=== PATIENT | male | born 1970 | race Caucasian/White ===

== ENCOUNTER 2018-11-23 22:17 | Inpatient (IN) | payer BC ==
[~2018-11-23] VITALS: Ht 167.6 cm; Wt 76.5 kg
[2018-11-23] MEDS ORDERED: SOD CHLORIDE 0.9% 500 ML IV STA (22:34)
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
[2018-11-23] MEDS ORDERED: LABETALOL HCL 20MG INJ IV ONE ×2 (23:00→23:30)
[2018-11-23] MEDS ORDERED: niCARdipine-NS 0.1MG/ML DRIP 200 ML IV STA (23:17)
[2018-11-23] MEDS ORDERED: SOD CHLORIDE 0.9% 100 ML ONE ×2 (23:27→23:36)
[2018-11-23] MEDS ORDERED: IODIXANOL LOCM 100 ML BTL ONE (23:27)
[2018-11-23] MEDS ORDERED: IOHEXOL 100 ML ONE (23:36)
[2018-11-24] VITALS (73 sets, daily range): BP systolic 106–164; BP diastolic 68–108; PULSE 67–105; RESP 12–25; Ht 167.6 cm; Wt 76.5 kg
[2018-11-24] MEDS ORDERED: AMLODIPINE 10 MG TAB PO ONE (01:00)
[2018-11-24] MEDS ORDERED: ONDANSETRON 4 MG INJ IV PRN (01:00)
[2018-11-24] MEDS ORDERED: ACETAMINOPHEN 650MG/20.3ML CUP PO PRN (01:00)
[2018-11-24] MEDS ORDERED: niCARdipine 25 MG in SOD CHLORIDE 0.9% 240 ML IV SCH ×4 (01:00)
[2018-11-24] MEDS: niCARdipine 25 MG in SOD CHLORIDE 0.9% 240 ML IV SCH ×5 (05:06→22:37)
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
[2018-11-24] MEDS ORDERED: GLUCOSE GEL 15 GRAM TUBE PO PRN ×2 (09:30)
[2018-11-24] MEDS ORDERED: GLUCOSE GEL 15 GRAM TUBE BUCCAL PRN (09:30)
[2018-11-24] MEDS ORDERED: GLUCAGON 1 MG INJ IM PRN (09:30)
[2018-11-24] MEDS ORDERED: DEXTROSE 50% 50 ML SYRINGE IV PRN ×2 (09:30)
[2018-11-24] MEDS: FAMOTIDINE 20 MG TAB PO SCH ×2 (09:36→22:21)
[2018-11-24] MEDS: AMLODIPINE 10 MG TAB PO SCH (09:36)
[2018-11-24] MEDS: METOPROLOL 50 MG TAB PO SCH ×2 (09:37→22:21)
[2018-11-24] MEDS: FENOFIBRATE 48 MG TAB PO SCH (11:27)
[2018-11-24] MEDS: INSULIN ASPART [NOVOLOG] 3 ML PEN SC SCH ×3 (13:19→22:32)
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
[2018-11-24] MEDS: ZOLPIDEM 5 MG TAB PO PRN (22:22)
[2018-11-25] VITALS (46 sets, daily range): BP systolic 91–157; BP diastolic 56–113; PULSE 67–99; RESP 8–21
[2018-11-25] MEDS: INSULIN ASPART [NOVOLOG] 3 ML PEN SC SCH ×6 (03:22→21:42)
[2018-11-25] MEDS: ACCU-CHEK XX SCH (03:22)
[2018-11-25] MEDS: niCARdipine 25 MG in SOD CHLORIDE 0.9% 240 ML IV SCH (04:41)
[2018-11-25] MEDS ORDERED: LORAZEPAM 2 MG INJ IV PRN (08:00)
[2018-11-25] MEDS: FENOFIBRATE 48 MG TAB PO SCH (08:25)
[2018-11-25] MEDS: AMLODIPINE 10 MG TAB PO SCH (08:26)
[2018-11-25] MEDS: FAMOTIDINE 20 MG TAB PO SCH ×2 (08:27→21:33)
[2018-11-25] MEDS: METOPROLOL 50 MG TAB PO SCH ×2 (08:27→21:34)
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
--- NOTE | 2018-11-25 18:24 | CONS ---
Assessment/Plan Assessment/Plan Assessment/Plan (Daily) S/p right thalamic ICH. Neurologically stable. Bleed unlikely to progress at this point. No acute neurosurgical issues. f/u with PMD re: facial spasm for meds/Botox initial treatment, can refer for surgical treatment if these treatments are ineffective. Consultation Date/Type/Reason Admit Date/Time Nov 24, 2018 at 00:45 Initial Consult Date Type of Consult Neurosurgery Reason for Consultation ICH Requesting Provider: MINGO ESTRADA MD Date/Time of Note DATE: 11/25/18 TIME: 18:21 24 HR Interval Summary Free Text/Dictation Patient doing well. Dizziness has improved. Denies headache, nausea or vomiting. Exam/Review of Systems Exam Vitals Vital Signs Date Temp Pulse Resp B/P (MAP) Pulse Ox O2 O2 Flow FiO2 Time Delivery Rate 11/25/18 93 17:06 11/25/18 15 148/97 98 Room Air 15:00 (114) 11/25/18 98.4 13:00 Intake and Output 11/24/18 11/24/18 11/25/18 1515:00 23:00 07:00 IntakeIntake Total 685 ml 599.17 ml 255 ml OutputOutput Total 200 ml 600 ml 0 ml BalanceBalance 485 ml -0.83 ml 255 ml Constitutional: alert, oriented Psych: no complaints Head: normocephalic Neurological: CLIENT SERVICES MANAGER II-XII intact, nl mental status, nl speech, nl strength (left facial spasm, chronic), other Results Result Diagram: 11/25/18 0445 11/25/18 0445 Results 24hrs Laboratory Tests Test 11/24/18 22:31 11/25/18 03:21 11/25/18 04:45 11/25/18 06:15 Bedside Glucose 261 H 172 172 White Blood Count 12.2 #H Red Blood Count 5.05 Hemoglobin 15.6 Hematocrit 44.3 Mean Corpuscular Volume 87.7 Mean Corpuscular 30.9 Hemoglobin Mean Corpuscular 35.2 Hemoglobin Concent Red Cell Distribution 11.3 L Width Platelet Count 268 Mean Platelet Volume 10.5 H Immature Granulocytes % 0.300 Neutrophils % 57.9 Lymphocytes % 32.8 Monocytes % 7.1 Eosinophils % 1.4 Basophils % 0.5 Nucleated Red Blood 0.0 Cells % Immature Granulocytes # 0.040 H Neutrophils # 7.0 Lymphocytes # 4.0 H Monocytes # 0.9 Eosinophils # 0.2 Basophils # 0.1 Nucleated Red Blood 0.0 Cells # Sodium Level 140 Potassium Level 4.0 Chloride Level 106 Carbon Dioxide Level 26 Anion Gap 8 Blood Urea Nitrogen 20 Creatinine 1.04 Est Glomerular Filtrat > 60 Rate mL/min Glucose Level 151 Calcium Level 9.0 Phosphorus Level 4.3 Magnesium Level 2.2 Test 11/25/18 08:07 11/25/18 09:39 11/25/18 12:43 11/25/18 17:28 Bedside Glucose 174 350 H 194 217 Imaging Imaging MRI brain- stable ICH. No other concerning findings. Medications Medication Current Medications Ondansetron HCl (Zofran Inj) 4 mg Q6H PRN IV NAUSEA AND/OR VOMITING; Start 11/24/18 at 01:00 Acetaminophen (Tylenol Liquid) 650 mg Q6H PRN PO PAIN LEVEL 1-3 OR FEVER; Start 11/24/18 at 01:00 Famotidine (Pepcid) 20 mg Q12 PO Last administered on 11/25/18at 08:27; Admin Dose 20 MG; Start 11/24/18 at 09:00 Amlodipine Besylate (Norvasc) 10 mg DAILY PO Last administered on 11/25/18 08:26; Admin Dose 10 MG; Start 11/24/18 at 09:00 Metoprolol Tartrate (Lopressor) 50 mg BID PO Last administered on 11/25/18 08:27; Admin Dose 50 MG; Start 11/24/18 at 09:00 Fenofibrate (Tricor) 48 mg DAILY PO Last administered on 11/25/18 08:25; Admin Dose 48 MG; Start 11/24/18 at 11:00 Diagnostic Test (Pha) (Accu-Chek) 1 ea 02 XX Last administered on 11/25/18at 03:22; Admin Dose 1 EA; Start 11/25/18 at 02:00 Miscellaneous Information 1 ea NOTE XX ; Start 11/24/18 at 09:30 Glucose (Glutose) 15 gm Q15M PRN PO DECREASED GLUCOSE; Start 11/24/18 at 09:30 Glucose (Glutose) 22.5 gm Q15M PRN PO DECREASED GLUCOSE; Start 11/24/18 at 09:30 Dextrose (D50w Syringe) 25 ml Q15M PRN IV DECREASED GLUCOSE; Start 11/24/18 at 09:30 Dextrose (D50w Syringe) 50 ml Q15M PRN IV DECREASED GLUCOSE; Start 11/24/18 at 09:30 Glucagon (Glucagen) 1 mg Q15M PRN IM DECREASED GLUCOSE; Start 11/24/18 at 09:30 Glucose (Glutose) 15 gm Q15M PRN BUCCAL DECREASED GLUCOSE; Start 11/24/18 at 09:30 Lorazepam (Ativan) 1 mg ONCE PRN IV ANXIETY Last administered on 11/25/18at 13:01; Admin Dose 1 MG; Start 11/25/18 at 08:00; Stop 11/25/18 at 19:00 Zolpidem Tartrate (Ambien) 2.5 mg HS PRN PO INSOMNIA Last administered on 11/24/18at 22:22; Admin Dose 2.5 MG; Start 11/24/18 at 17:30 Insulin Aspart (Novolog Insulin Pen) NOVOLOG *MILD* ALGORI... IACHS SC Last administered on 11/25/18at 12:43; Admin Dose 2 UNIT; Start 11/25/18 at 11:00 FARSHAD CANTU MD Nov 25, 2018 18:24
[2018-11-25] MEDS: ZOLPIDEM 5 MG TAB PO PRN (23:20)
[2018-11-26] VITALS (8 sets, daily range): BP systolic 133–146; BP diastolic 94–99; PULSE 73–90; RESP 18–20
[2018-11-26] MEDS: ACCU-CHEK XX SCH (02:41)
[2018-11-26] MEDS: INSULIN ASPART [NOVOLOG] 3 ML PEN SC SCH ×2 (07:49→11:54)
[2018-11-26] MEDS: METOPROLOL 50 MG TAB PO SCH (08:27)
[2018-11-26] MEDS: FAMOTIDINE 20 MG TAB PO SCH (08:27)
[2018-11-26] MEDS: AMLODIPINE 10 MG TAB PO SCH (08:27)
[2018-11-26] MEDS: FENOFIBRATE 48 MG TAB PO SCH (08:27)
[2018-11-26] MEDS ORDERED: METO-429 PO (11:47)
[2018-11-26] MEDS ORDERED: AMLO-147 PO (11:47)
[2018-11-26] MEDS ORDERED: METF500T24 PO (11:47)
--- NOTE | 2018-11-26 11:53 | PDOCDIS ---
Discharge Instructions DIAGNOSIS Discharge Diagnosis Essential hypertension non-insulin dependent diabetes Intraparenchymal thalamic hemorrhage CONDITION [id number] Patient Condition: [id number] Good HOME CARE INSTRUCTIONS: [id number] Diet Instructions: [id number] Low Fat /Cholesterol ACTIVITY: [id number] Activity Restrictions: [id number] No Restrictions FOLLOW UP/APPOINTMENTS Follow-up Plan 1. You have high blood pressure and diabetes. These are both lifelong conditions. If they are managed poorly you will be at risk for heart attack, stroke, kidney failure, and blindness in the future. 2. You should go through your health insurance to get a primary care doctor you can see regularly. 3. For diabetes, take metformin twice daily. This medicine can cause abdominal bloating and diarrhea. If this happens try taking it once a day only before quitting. 4. For high blood pressure, take metoprolol and amlodipine. Your primary care doctor may change your blood pressure medicines. 5. For suddenly worsening headache not responsive to tylenol, return to the emergency room. 1. Usted tiene presin arterial greta y diabetes. Estas son condiciones de por [place]ia. Si se administran de manera deficiente, correr el riesgo de sufrir un ataque cardaco, un derrame cerebral, insuficiencia renal y ceguera en el futuro. 2. Debe consultar henson seguro de [place] para obtener un mdico de atencin primaria que pueda svitlana regularmente. 3. Para la diabetes, tome metformina dos veces al da. Millicent medicamento puede causar hinchazn abdominal y diarrea. Si esto sucede, intente tomarlo osito vez al da solo antes de dejar de fumar. 4. Para la presin arterial greta, tome metoprolol y amlodipine. Henson mdico de atencin primaria puede cambiar taras medicamentos para la presin arterial. 5. Para el empeoramiento repentino del dolor de joshua que no responde al tylenol, regrese a la vicky de emergencias. MINGO ESTRADA MD Nov 26, 2018 11:53
--- NOTE | 2018-11-26 14:35 | CONS ---
Assessment/Plan Assessment/Plan Hospital Course 48 yo M c/ chronic facial twitching but otherwise uncertain PMHx due to poor medical follow up...who presents for evaluation of dizziness and generalized weakness.. CT Head revealed a R thalamic hemorrhage for which neurology is consulted.. Likely hypertensive in etiology. MRI brain was negative for underlying ischemia or mass.. CTA Head was without adjacent vascular abnl.. UDS neg P Avoid antiplatelets/anticoagulants in the short term Continued BP control (goal: strict normotension) PT/OT/ST as necessary Other management per primary Neurologically cleared for d/c.. Consultation Date/Type/Reason Admit Date/Time Nov 24, 2018 at 00:45 Type of Consult Neurology Reason for Consultation [facility] Requesting Provider: MINGO ESTRADA MD Date/Time of Note DATE: 11/26/18 TIME: 14:34 24 HR Interval Summary Free Text/Dictation Continues acute care Exam Vital Signs Vitals Vital Signs Date Temp Pulse Resp B/P (MAP) Pulse Ox O2 O2 Flow FiO2 Time Delivery Rate 11/26/18 74 12:01 11/26/18 97.3 20 143/99 97 11:43 (114) 11/25/18 Room Air 15:00 Intake and Output 11/25/18 11/25/18 11/26/18 1515:00 23:00 07:00 IntakeIntake Total 910 ml 200 ml OutputOutput Total 790 ml BalanceBalance 120 ml 200 ml Exam PE: Gen Appearance: No Apparent Distress HEENT: Normocephalic Cardiovascular: Regular rate Abdomen: Soft Extremities: Dry NE: The patient was alert and oriented. Language was normal. Fund of knowledge was normal. Pupils were equal and reactive to light. There was no afferent pupillary defect. Visual russo were normal. Funduscopic examination showed sharp disc margins and spontaneous venous pulsations. Extra-ocular movements were full. Ptosis was absent. There was no nystagmus. Facial sensation was normal. Face was symmetric with normal strength. R facial twitching noted. Hearing was intact. Palate movements were normal. Neck strength was normal. There was normal tongue bulk and speed of movement. Tone was normal. Muscle bulk was normal. I did not see fasciculations. Arms and legs were strong. Vibration sensation was normal. Temperature and pinprick sensation was normal. Rapid alternating movements were normal. There was no dysmetria. There was no intention tremor. Gait was deferred due to bedrest. Arm and leg reflexes were symmetric. Hernandez's sign was absent. Plantar responses were flexor. LYNNE KRISHNA NP Nov 26, 2018 14:35 ARIANA CRAWFORD Nov 26, 2018 16:11
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
== END 2018-11-26 16:30 | disposition home or self-care (01) | DRG 65 ==
LOC: E/R 22:17 → ICU 11-24 00:45 → 6WM 11-24 04:13
PROVIDERS: ADMIT Internal Medicine; ATTEND Internal Medicine
DX: I61.9 Nontraumatic intracerebral hemorrhage, unspecified (principal); I16.1 Hypertensive emergency; E11.65 Type 2 diabetes mellitus with hyperglycemia; G51.31 Clonic hemifacial spasm, right; I10 Essential (primary) hypertension
CPT/HCPCS: 36415; 70450; 70496; 70498; 70551; 71045; 80048; 80053; 80061; 80307; 81003; 82962; 83036; 83735; 84100; 84484; 85025; 85610; 85730; 87081; 92610; 93005; 96374; 96375; 97162; 97167; 97530; J1815; J2060; J7040; J7050; Q9967